=== PATIENT | male | born 1985 | race Caucasian/White ===

== ENCOUNTER 2016-12-15 13:21 | Emergency (ER) | payer SELFPAY ==
--- NOTE | ~2016-12-15 | EKG ---
PATIENT: NICOLE BELLO UNIT #: [id number] Ventricular Rate: 68 BPM Atrial Rate: 68 BPM P-R Interval: 136 ms QRS Duration: 86 ms Q-T Interval: 366 ms QTC Calculation(Bezet): 389 ms P [place]: 37 degrees Calculated R [place]: -27 degrees Calculated T [place]: 17 degrees Diagnosis Line: Normal sinus rhythm Diagnosis Line: Normal ECG Diagnosis Line: No previous ECGs available Diagnosis Line: Confirmed by JODY TUTTLE MD ([id number]) on Diagnosis Line: 12/19/2016 3:22:08 PM INTERPRETING MD: PARAG ALEXANDRE
--- NOTE | ~2016-12-15 | CR63 ---
[facility]. [facility] A Service of [facility] & [facility] RADIOLOGY TEXT RESULTS PATIENT: NICOLE BELLO LOCATION: SED : 89 UNIT #: [id number] AGE: [address]: Nigel Henriquez MD SEX: M ORDER DR: [id number] [place] [id number] E MR#: [id number] Acc #: [id number] NAME: NICOLE BELLO : 1985 SEX: M STUDY DATE/TIME: 12/15/2016 14:15 UNIT: SED ROOM: STUDY DESCRIPTION: CR Chest 2 View Attending Physician: Nigel Henriquez M.D. Referring Physician: Nigel Henriquez M.D. Ordering Physician: Nigel Henriquez M.D. Primary Care Physician: No Primary Care Physician MEDICAL IMAGING REPORT This report is preliminary unless electronic signature is present. EXAM Chest 12/15/2016 [facility] HISTORY 31-year-old male with unexplained chest pain past 2 weeks. COMPARISON None FINDINGS Two-view chest demonstrates normal cardiac size and configuration. Hilar structures and mediastinal contours are preserved. Lungs are expanded and clear bilaterally. Bony thorax is normal. IMPRESSION Negative chest. Dictated by... Romulo Johnson M.D. THIS IS AN ELECTRONICALLY VERIFIED REPORT Romulo Johnson M.D. at 12/25/2016 8:10 AM TANVIR/janet TD: 12/15/2016 16:33 JOB #: [id number] MEDICAL IMAGING REPORT Page 1 of 1
[2016-12-15] MEDS ORDERED: NO MEDICATIONS (13:36)
== END 2016-12-15 15:33 | disposition home or self-care (01) ==
LOC: SED 13:21
DX: M94.0 Chondrocostal junction syndrome [Tietze] (principal)
CPT/HCPCS: 71020; 93005; 99284